=== PATIENT | male | born 1950 | race Caucasian/White ===

== ENCOUNTER 2021-10-13 17:17 | Emergency (ER) | payer BC ==
[~2021-10-13] VITALS: Ht 190.5 cm; Wt 108.9 kg
[2021-10-13 17:20] VITALS: BP 117/60
[2021-10-13 21:07] LABS: Urine WBC None Seen /hpf (0 - 3)
[2021-10-13 21:21] LABS: Urine Bacteria NONE SEEN /hpf (None Seen); Urine Blood Negative /uL (Negative); Urine Specific Gravity 1.003 (1.001-1.035)
== END 2021-10-13 21:56 | disposition left against medical advice (07) ==
LOC: ER 17:17
DX: I95.9 Hypotension, unspecified (principal); Z53.21 Procedure and treatment not carried out due to patient leaving prior to being seen by health care provider
CPT/HCPCS: 81001; 93005

== ENCOUNTER 2022-05-09 17:15 | Inpatient (IN) | payer MEDICARE, BC ==
[~2022-05-09] VITALS: Ht 190.5 cm; Wt 100.2 kg
[2022-05-09] MEDS ORDERED: LABETALOL HCL 5 MG/ML 4ML SYRINGE IV ONE ×2 (18:00→18:30)
[2022-05-09 18:14] LABS: Basophils # (auto) 0 10 ^3/uL (0-0.2); Basophils % (auto) 0.6 % (0.0-2.0); Eosinophils # (auto) 0.3 10 ^3/uL (0-0.8); Eosinophils % (auto) 3.4 % (0.0-7.0); Hematocrit 40.3 % (41.0-53.0); Hemoglobin 13.9 g/dL (13.5-17.5); Lymphocytes # (auto) 1.2 10 ^3/uL (0.4-5.4); Lymphocytes % (auto) 14.8 % (10.0-50.0); Mean Corpuscular Hemoglobin 29.8 pg (28.0-32.0); Mean Corpuscular Hgb Conc. 34.4 g/dL (32.0-36.0); Mean Corpuscular Volume 86.5 fL (80.0-100.0); Monocytes # (auto) 0.7 10 ^3/uL (0-1.3); Neutrophils # (auto) 5.6 10 ^3/uL (1.6-8.6); Neutrophils % (auto) 72.2 % (37.0-80.0); Red Blood Cells 4.66 10^6/uL (4.5-5.90); Red Cell Distribution Width 13.9 % (11.8-14.3); White Blood Cell 7.8 10^3/uL (4.4-10.8)
[2022-05-09 18:25] LABS: INR 1.07 (0.9-1.15); Partial Thromboplastin Time 29.1 sec (23.6-33.0)
[2022-05-09 18:26] LABS: Albumin 3.4 g/dL (3.4-5.0); BUN/Creatinine Ratio 16.3; Calcium 8.2 mg/dL (8.5-10.1); Magnesium 2.1 mg/dL (1.6-2.6); Potassium 4.1 mmol/L (3.5-5.1)
[2022-05-09 18:37] LABS: Bilirubin, Total 0.8 mg/dL (0.2-1.0); Total Protein 6.1 g/dL (6.4-8.2)
[2022-05-09] MEDS ORDERED: cloNIDine HCL 0.1 MG TAB PO ONE (20:30)
[2022-05-09] MEDS ORDERED: MORPHINE SULFATE INJ 2 MG/ml SYRG IV PRN ×2 (22:00→23:30)
[2022-05-09] MEDS: ATORVASTATIN 20 MG TAB PO SCH (22:00)
[2022-05-09] MEDS ORDERED: ONDANSETRON HCL 4 MG/2 ML VIAL IV PRN (22:00)
[2022-05-09] MEDS ORDERED: ACETAMINOPHEN 325 MG TAB PO PRN (22:00)
[2022-05-09] MEDS ORDERED: HYDROcodone-ACET 5/325MG TAB PO PRN (22:00)
[2022-05-09] MEDS ORDERED: DOCUSATE SOD 100 MG CAP PO PRN (22:00)
[2022-05-09] MEDS: SODIUM CHLOR 0.9% PF (SALINE LOCK) 10ML VIAL/SYR IV SCH (22:57)
[2022-05-09] MEDS ORDERED: NITROGLYCERIN 0.4 MG SL TAB SL PRN (23:30)
[2022-05-10] VITALS (8 sets, daily range): BP systolic 105–178; BP diastolic 60–99
[2022-05-10] MEDS: hydrALAZINE HCL 20 MG/ML VL IV PRN ×2 (01:26→06:17)
[2022-05-10] MEDS ORDERED: LORazepam 2MG/ML-1ML VIAL IV PRN (01:30)
[2022-05-10] MEDS ORDERED: SODIUM CHLORIDE 0.9% 1,000 ML IV SCH (01:45)
[2022-05-10] MEDS: SODIUM CHLOR 0.9% PF (SALINE LOCK) 10ML VIAL/SYR IV SCH ×3 (05:00→21:00)
[2022-05-10] MEDS ORDERED: PATIENTS OWN MEDICATION PO SCH ×2 (06:00→10:00)
[2022-05-10] MEDS ORDERED: FAMOTIDINE (10MG/ML) 2ML VL IV SCH (10:00)
[2022-05-10 10:25] LABS: Basophils # (auto) 0.1 10 ^3/uL (0-0.2); Basophils % (auto) 1.4 % (0.0-2.0); Eosinophils # (auto) 0.3 10 ^3/uL (0-0.8); Eosinophils % (auto) 3.2 % (0.0-7.0); Hematocrit 45.2 % (41.0-53.0); Hemoglobin 15.5 g/dL (13.5-17.5); Lymphocytes % (auto) 12.7 % (10.0-50.0); Mean Corpuscular Hemoglobin 30.1 pg (28.0-32.0); Mean Corpuscular Hgb Conc. 34.3 g/dL (32.0-36.0); Mean Corpuscular Volume 87.6 fL (80.0-100.0); Monocytes # (auto) 0.8 10 ^3/uL (0-1.3); Monocytes % (auto) 10.5 % (0.0-12.0); Neutrophils # (auto) 5.7 10 ^3/uL (1.6-8.6); Neutrophils % (auto) 72.2 % (37.0-80.0); Nucleated Red Blood Cells % 0.1 %; Red Blood Cells 5.16 10^6/uL (4.5-5.90); White Blood Cell 7.9 10^3/uL (4.4-10.8)
[2022-05-10] MEDS: ASPirin 81 mg TAB PO SCH (10:30)
[2022-05-10] MEDS: ENOXAPARIN SOD 40 MG/0.4 ML SYRINGE SC SCH (10:31)
[2022-05-10] MEDS: amLODIPine BESYLATE 5 MG TAB PO SCH (10:31)
[2022-05-10 10:43] LABS: Albumin 3.6 g/dL (3.4-5.0); Potassium 4.1 mmol/L (3.5-5.1)
[2022-05-10] MEDS ORDERED: LOSARTAN POTASSIUM 50 MG TAB PO ONE (10:45)
[2022-05-10 10:51] LABS: BUN/Creatinine Ratio 10.9; Bilirubin, Total 1.1 mg/dL (0.2-1.0)
[2022-05-10] MEDS ORDERED: SAFI100T PO (13:44)
[2022-05-10] MEDS ORDERED: APOMINJ SC (13:49)
[2022-05-10] MEDS: RYTARY PO SCH ×2 (14:00→21:01)
[2022-05-10] MEDS: ROPINIROLE 1 MG PO SCH ×2 (14:00→21:00)
[2022-05-10] MEDS ORDERED: XADAGO PO SCH (16:00)
[2022-05-10] MEDS: NOURIANZ PO SCH (21:00)
[2022-05-10] MEDS: ATORVASTATIN 20 MG TAB PO SCH (21:00)
[2022-05-10 21:04] LABS: Urine Bacteria FEW /hpf (None Seen); Urine Blood Negative /uL (Negative); Urine Specific Gravity 1.013 (1.001-1.035); Urine WBC 1 /hpf (0 - 3)
[2022-05-10] MEDS ORDERED: NOURIANZ PO SCH (22:00)
[2022-05-11 05:00] VITALS: BP 196/98
[2022-05-11] MEDS: hydrALAZINE HCL 20 MG/ML VL IV PRN (05:08)
[2022-05-11] MEDS: SODIUM CHLOR 0.9% PF (SALINE LOCK) 10ML VIAL/SYR IV SCH ×3 (05:12→21:13)
[2022-05-11] MEDS: ROPINIROLE 1 MG PO SCH ×3 (05:16→21:14)
[2022-05-11] MEDS: RYTARY PO SCH ×3 (05:17→21:14)
[2022-05-11 06:00] VITALS: BP 111/92
[2022-05-11 06:14] LABS: Basophils # (auto) 0.1 10 ^3/uL (0-0.2); Basophils % (auto) 0.6 % (0.0-2.0); Eosinophils # (auto) 0.2 10 ^3/uL (0-0.8); Eosinophils % (auto) 2.3 % (0.0-7.0); Hematocrit 46.3 % (41.0-53.0); Hemoglobin 16.3 g/dL (13.5-17.5); Lymphocytes # (auto) 1.1 10 ^3/uL (0.4-5.4); Lymphocytes % (auto) 13.2 % (10.0-50.0); Mean Corpuscular Hemoglobin 30.6 pg (28.0-32.0); Mean Corpuscular Hgb Conc. 35.2 g/dL (32.0-36.0); Mean Corpuscular Volume 86.9 fL (80.0-100.0); Monocytes # (auto) 0.9 10 ^3/uL (0-1.3); Monocytes % (auto) 10.6 % (0.0-12.0); Neutrophils # (auto) 6.1 10 ^3/uL (1.6-8.6); Neutrophils % (auto) 73.3 % (37.0-80.0); Nucleated Red Blood Cells % 0.1 %; Red Blood Cells 5.33 10^6/uL (4.5-5.90); Red Cell Distribution Width 13.8 % (11.8-14.3); White Blood Cell 8.3 10^3/uL (4.4-10.8)
[2022-05-11 06:21] LABS: Calcium 9.4 mg/dL (8.5-10.1); Potassium 3.9 mmol/L (3.5-5.1)
[2022-05-11 06:24] LABS: BUN/Creatinine Ratio 15.9
[2022-05-11 08:30] VITALS: BP 160/89
[2022-05-11] MEDS: APOKYN SC PRN ×2 (08:38→19:45)
[2022-05-11] MEDS: LOSARTAN POTASSIUM 50 MG TAB PO SCH (09:16)
[2022-05-11] MEDS: ASPirin 81 mg TAB PO SCH (09:16)
[2022-05-11] MEDS: PANTOPRAZOLE 40 MG TAB PO SCH (09:17)
[2022-05-11] MEDS: amLODIPine BESYLATE 5 MG TAB PO SCH (09:17)
[2022-05-11] MEDS: ENOXAPARIN SOD 40 MG/0.4 ML SYRINGE SC SCH (09:17)
[2022-05-11] MEDS ORDERED: PATIENTS OWN MEDICATION PO SCH (10:00)
[2022-05-11] MEDS ORDERED: XADAGO PO SCH (10:00)
[2022-05-11 12:40] VITALS: BP 106/57
[2022-05-11] MEDS ORDERED: clonazePAM 0.5 MG TAB PO PRN (13:45)
[2022-05-11] MEDS: LORazepam 0.5 MG TAB PO PRN ×2 (15:47→21:15)
[2022-05-11 16:45] VITALS: BP 108/69
[2022-05-11] MEDS: ATORVASTATIN 20 MG TAB PO SCH (21:14)
[2022-05-11] MEDS: NOURIANZ PO SCH (21:14)
[2022-05-11 22:00] VITALS: BP 130/64
[2022-05-12] MEDS: APOKYN SC PRN (01:17)
[2022-05-12] MEDS: LORazepam 0.5 MG TAB PO PRN (03:20)
[2022-05-12 05:00] VITALS: BP 135/32
[2022-05-12] MEDS: ROPINIROLE 1 MG PO SCH (05:01)
[2022-05-12] MEDS: SODIUM CHLOR 0.9% PF (SALINE LOCK) 10ML VIAL/SYR IV SCH (05:01)
[2022-05-12] MEDS: RYTARY PO SCH (05:01)
[2022-05-12] MEDS ORDERED: XADAGO PO SCH (08:00)
[2022-05-12] MEDS ORDERED: ADENOSINE 84 MG in GIVE UN-DILUTED 0 ML IV ONE (08:15)
[2022-05-12] MEDS ORDERED: ROPINIROLE 1 MG PO SCH (09:00)
[2022-05-12] MEDS ORDERED: RYTARY PO SCH (09:00)
[2022-05-12] MEDS: ASPirin 81 mg TAB PO SCH (10:05)
[2022-05-12] MEDS: PANTOPRAZOLE 40 MG TAB PO SCH (10:06)
[2022-05-12] MEDS: LOSARTAN POTASSIUM 50 MG TAB PO SCH (10:06)
[2022-05-12] MEDS: amLODIPine BESYLATE 5 MG TAB PO SCH (10:06)
[2022-05-12] MEDS: ENOXAPARIN SOD 40 MG/0.4 ML SYRINGE SC SCH (10:07)
[2022-05-12 11:24] VITALS: BP 113/54
== END 2022-05-12 13:30 | disposition home or self-care (01) | DRG 303 ==
LOC: EDBD 17:15 → ER 17:15 → TELE 23:22 → TELE-CENTR 05-10 02:21
PROVIDERS: ADMIT Nurse Practitioner Family; ATTEND Internal Medicine
DX: I25.10 Atherosclerotic heart disease of native coronary artery without angina pectoris (principal); E87.1 Hypo-osmolality and hyponatremia; I16.0 Hypertensive urgency; F41.9 Anxiety disorder, unspecified; G20 Parkinson's disease; G90.9 Disorder of the autonomic nervous system, unspecified; I10 Essential (primary) hypertension; Z20.822 Contact with and (suspected) exposure to COVID-19; R73.9 Hyperglycemia, unspecified; E66.3 Overweight; Z82.49 Family history of ischemic heart disease and other diseases of the circulatory system; Z68.27 Body mass index [BMI] 27.0-27.9, adult
CPT/HCPCS: 36415; 71045; 78452; 80048; 80053; 80061; 81001; 83036; 83735; 84484; 85025; 85610; 85730; 93005; 93017; 93306; 96361; 96374; 96376; 97110; 97116; 97163; 97530; 99291; G0378; J0153; J3490

== ENCOUNTER 2022-10-15 05:19 | Emergency (ER) | payer MEDICARE, BC ==
[~2022-10-15] VITALS: Ht 190.5 cm; Wt 113.5 kg
[~2022-10-15 05:19] MED LIST: APOMINJ SC; SAFI100T PO
[2022-10-15 06:26] LABS: Basophils # (auto) 0.1 10 ^3/uL (0-0.2); Basophils % (auto) 0.6 % (0.0-2.0); Eosinophils # (auto) 0.3 10 ^3/uL (0-0.8); Eosinophils % (auto) 2.9 % (0.0-7.0); Hematocrit 45.9 % (41.0-53.0); Hemoglobin 15.6 g/dL (13.5-17.5); Lymphocytes # (auto) 0.8 10 ^3/uL (0.4-5.4); Lymphocytes % (auto) 8.3 % (10.0-50.0); Mean Corpuscular Hemoglobin 30.2 pg (28.0-32.0); Mean Corpuscular Hgb Conc. 33.9 g/dL (32.0-36.0); Mean Corpuscular Volume 89.2 fL (80.0-100.0); Monocytes % (auto) 10.8 % (0.0-12.0); Neutrophils # (auto) 7.1 10 ^3/uL (1.6-8.6); Neutrophils % (auto) 77.4 % (37.0-80.0); Nucleated Red Blood Cells % 0.1 %; Red Blood Cells 5.15 10^6/uL (4.5-5.90); Red Cell Distribution Width 14.1 % (11.8-14.3); White Blood Cell 9.2 10^3/uL (4.4-10.8)
[2022-10-15 06:51] LABS: Acetaminophen < 2.0 ug/mL (10-30); Salicylate < 1.7 mg/dL (2.8-20.0)
[2022-10-15 07:40] LABS: Alcohol, Urine < 3.0 mg/dL (0-10); Amphetamine Screen, Urine NEGATIVE (NEGATIVE); Barbiturate Scree,Urine NEGATIVE (NEGATIVE); Benzodiazephine Screen, Urine NEGATIVE (NEGATIVE); Cannabinoid Screen, Urine NEGATIVE (NEGATIVE); Cocaine Screen, Urine NEGATIVE (NEGATIVE); Opiate Scree,Urine NEGATIVE (NEGATIVE); Phencyclidine Screen, Urine NEGATIVE (NEGATIVE)
[2022-10-15] MEDS ORDERED: SODIUM CHLORIDE 0.9% 1,000 ML IV ONE (09:45)
[2022-10-15 09:47] LABS: Alanine Aminotransferase 14 U/L (16-61); Albumin 3.9 g/dL (3.4-5.0); Alkaline Phosphatase 69 U/L (45-117); Anion Gap 8 (5-15); Aspartate Aminotransferase 25 U/L (15-37); BUN/Creatinine Ratio 17.3; Bilirubin, Total 0.8 mg/dL (0.2-1.0); Blood Urea Nitrogen 24 mg/dL (7-18); Carbon Dioxide 25 mmol/L (21-32); Chloride 106 mmol/L (98-107); GFR African American 64 mL/min; GFR Non-African American 53 mL/min; Glucose 149 mg/dL (74-106); Potassium 4.4 mmol/L (3.5-5.1); Sodium 139 mmol/L (136-145); Total Protein 6.7 g/dL (6.4-8.2)
[2022-10-15 09:48] LABS: Blood Alcohol < 3.0 mg/dL (0-5)
[2022-10-15] MEDS ORDERED: cloNIDine HCL 0.1 MG TAB PO ONE (19:00)
[2022-10-16 16:30] VITALS: BP 117/62
== END 2022-10-16 06:56 | disposition home or self-care (01) ==
LOC: EDBD 05:19 → ER 05:19
DX: R45.851 Suicidal ideations (principal); I10 Essential (primary) hypertension; R07.89 Other chest pain; E78.5 Hyperlipidemia, unspecified; Z79.899 Other long term (current) drug therapy
CPT/HCPCS: 36415; 71045; 80053; 80307; 80320; 80329; 84484; 85025; 93005; 99285; J7030

== ENCOUNTER 2023-11-06 09:38 | Inpatient (IN) | payer MEDICARE, OTHER ==
[~2023-11-06] VITALS: Ht 190.5 cm; Wt 77.2 kg
[2023-11-06] MEDS ORDERED: SODIUM CHLORIDE 0.9% 1,000 ML IV ONE ×2 (10:00)
[2023-11-06 10:38] LABS: Basophils # (auto) 0.1 10 ^3/uL (0-0.2); Basophils % (auto) 0.6 % (0.0-2.0); Eosinophils # (auto) 0.1 10 ^3/uL (0-0.8); Eosinophils % (auto) 0.8 % (0.0-7.0); Hematocrit 47.4 % (41.0-53.0); Hemoglobin 16.1 g/dL (13.5-17.5); Lymphocytes # (auto) 1.1 10 ^3/uL (0.4-5.4); Lymphocytes % (auto) 11.6 % (10.0-50.0); Mean Corpuscular Hemoglobin 30.1 pg (28.0-32.0); Mean Corpuscular Volume 88.4 fL (80.0-100.0); Monocytes # (auto) 0.7 10 ^3/uL (0-1.3); Monocytes % (auto) 7.4 % (0.0-12.0); Neutrophils # (auto) 7.9 10 ^3/uL (1.6-8.6); Neutrophils % (auto) 79.6 % (37.0-80.0); Nucleated Red Blood Cells % 0.4 %; Red Blood Cells 5.36 10^6/uL (4.5-5.90); Red Cell Distribution Width 13.8 % (11.8-14.3); White Blood Cell 9.9 10^3/uL (4.4-10.8)
[2023-11-06 10:51] LABS: INR 1.14 (0.9-1.15); Partial Thromboplastin Time 30.6 SEC (24.5-34.5); Prothrombin Time 11.9 sec (9.3-11.8)
[2023-11-06 11:00] VITALS: PULSE 92; RESP 18; O2SAT 98
[2023-11-06 11:09] LABS: Alanine Aminotransferase 12 U/L (7-40); Albumin 4.1 g/dL (3.2-4.8); Alkaline Phosphatase 88 U/L (46-116); Anion Gap 9 (5-15); Aspartate Aminotransferase 25 U/L (13-40); BUN/Creatinine Ratio 20.5 (10.0-20.0); Blood Urea Nitrogen 15 mg/dL (9-23); Calcium 9.8 mg/dL (8.5-10.1); Carbon Dioxide 27 mmol/L (20-30); Chloride 103 mmol/L (98-107); Creatine Kinase IFCC 72 U/L (46-171); Glucose 104 mg/dL (74-106); Potassium 4.6 mmol/L (3.5-5.1); Sodium 139 mmol/L (136-145)
[2023-11-06 11:10] LABS: Bilirubin, Total 0.8 mg/dL (0.2-1.0); Total Protein 6.5 g/dL (5.7-8.2)
[2023-11-06] MEDS ORDERED: ONDANSETRON HCL 4 MG/2 ML VIAL IV PRN (13:15)
[2023-11-06] MEDS ORDERED: ACETAMINOPHEN 325 MG TAB PO PRN (13:15)
[2023-11-06] MEDS ORDERED: HYDROcodone-ACET 5/325MG TAB PO PRN (13:15)
[2023-11-06] MEDS ORDERED: MORPHINE SULFATE INJ 2 MG/ml SYRG IV PRN ×2 (13:15)
[2023-11-06] MEDS ORDERED: NITROGLYCERIN 0.4 MG SL TAB SL PRN (13:15)
[2023-11-06] MEDS ORDERED: ASPirin 325 MG TAB PO ONE (13:30)
[2023-11-06] MEDS ORDERED: IOHEXOL 350 MG/ML 100ML IJ ONE ×2 (13:45→17:31)
[2023-11-06 15:10] LABS: Urine Bacteria NONE SEEN /hpf (None Seen); Urine Blood TRACE /uL (Negative); Urine Clarity HAZY (Clear); Urine Color Yellow (Yellow); Urine Hyaline Cast FEW /lpf (0 - 2); Urine Mucus FEW (None Seen); Urine Protein, UAD TRACE (Negative); Urine Specific Gravity 1.023 (1.001-1.035); Urine WBC 81 /hpf (0 - 3); Urine pH 5.5 (5.0-8.0)
[2023-11-06 15:14] LABS: Amphetamine Screen, Urine Neg (NEGATIVE); Barbiturate Scree,Urine Neg (NEGATIVE); Benzodiazephine Screen, Urine Neg (NEGATIVE); Cocaine Screen, Urine Neg (NEGATIVE)
[2023-11-06 15:15] LABS: Cannabinoid Screen, Urine Neg (NEGATIVE); Opiate Scree,Urine Neg (NEGATIVE); Phencyclidine Screen, Urine Neg (NEGATIVE)
[2023-11-06] MEDS ORDERED: ASPirin 81 mg TAB ONE (15:26)
[2023-11-06 19:43] VITALS: PULSE 93; RESP 19; O2SAT 92
[2023-11-06] MEDS ORDERED: ASPirin 325 MG TAB ONE (23:15)
[2023-11-06] MEDS ORDERED: LOSARTAN POTASSIUM 25 MG TAB ONE (23:15)
[2023-11-06] MEDS ORDERED: CLOPIDOGREL BISULFATE 75 MG TAB ONE (23:16)
[2023-11-06] MEDS ORDERED: ATORVASTATIN 20 MG TAB ONE (23:16)
[2023-11-06] MEDS: LOSARTAN POTASSIUM 25 MG TAB PO SCH (23:22)
[2023-11-06] MEDS: CLOPIDOGREL BISULFATE 75 MG TAB PO SCH (23:22)
[2023-11-06] MEDS: ATORVASTATIN 20 MG TAB PO SCH (23:22)
[2023-11-07] MEDS ORDERED: hydrALAZINE HCL 20 MG/ML VL ONE ×4 (02:35→23:28)
[2023-11-07] MEDS: hydrALAZINE HCL 20 MG/ML VL IV PRN ×4 (02:35→23:31)
[2023-11-07 04:34] LABS: Basophils # (auto) 0 10 ^3/uL (0-0.2); Basophils % (auto) 0.4 % (0.0-2.0); Eosinophils # (auto) 0.1 10 ^3/uL (0-0.8); Eosinophils % (auto) 0.5 % (0.0-7.0); Hematocrit 47.5 % (41.0-53.0); Hemoglobin 15.6 g/dL (13.5-17.5); Lymphocytes % (auto) 10.2 % (10.0-50.0); Mean Corpuscular Hemoglobin 29.6 pg (28.0-32.0); Mean Corpuscular Hgb Conc. 32.8 g/dL (32.0-36.0); Mean Corpuscular Volume 90.2 fL (80.0-100.0); Monocytes # (auto) 0.9 10 ^3/uL (0-1.3); Monocytes % (auto) 8.5 % (0.0-12.0); Neutrophils # (auto) 8.3 10 ^3/uL (1.6-8.6); Neutrophils % (auto) 80.4 % (37.0-80.0); Nucleated Red Blood Cells % 0.1 %; Red Blood Cells 5.27 10^6/uL (4.5-5.90); White Blood Cell 10.3 10^3/uL (4.4-10.8)
[2023-11-07 04:39] LABS: Albumin 3.8 g/dL (3.2-4.8); Alkaline Phosphatase 75 U/L (46-116); Anion Gap 9 (5-15); Aspartate Aminotransferase 21 U/L (13-40); BUN/Creatinine Ratio 14.7 (10.0-20.0); Bilirubin, Total 1.1 mg/dL (0.2-1.0); Blood Urea Nitrogen 11 mg/dL (9-23); Calcium 8.9 mg/dL (8.7-10.4); Carbon Dioxide 24 mmol/L (20-30); Chloride 104 mmol/L (98-107); Glucose 82 mg/dL (74-106); Potassium 3.8 mmol/L (3.5-5.1); Sodium 137 mmol/L (136-145); Total Protein 6.4 g/dL (5.7-8.2)
[2023-11-07 05:07] LABS: Alanine Aminotransferase 9 U/L (7-40)
[2023-11-07 08:00] VITALS: PULSE 81; RESP 9; O2SAT 95
[2023-11-07] MEDS ORDERED: LOSARTAN POTASSIUM 25 MG TAB ONE (10:41)
[2023-11-07] MEDS ORDERED: ENOXAPARIN SOD 40 MG/0.4 ML SYRINGE SC ONE (10:41)
[2023-11-07] MEDS ORDERED: CLOPIDOGREL BISULFATE 75 MG TAB ONE (10:41)
[2023-11-07] MEDS ORDERED: ASPirin 81 mg TAB ONE (10:42)
[2023-11-07] MEDS: LOSARTAN POTASSIUM 25 MG TAB PO SCH (10:45)
[2023-11-07] MEDS: CLOPIDOGREL BISULFATE 75 MG TAB PO SCH (10:45)
[2023-11-07] MEDS: ASPirin 81 mg TAB PO SCH (10:45)
[2023-11-07] MEDS: ENOXAPARIN SOD 40 MG/0.4 ML SYRINGE SC SCH (10:46)
[2023-11-07] MEDS ORDERED: ROPI1TAB4 PO (15:57)
[2023-11-07] MEDS ORDERED: ISTR40TA PO (16:00)
[2023-11-07] MEDS ORDERED: CARB1CAP3 PO (16:00)
[2023-11-07] MEDS ORDERED: PREG-108 PO (16:00)
[2023-11-07] MEDS ORDERED: ATEN100T PO (16:01)
[2023-11-07 19:30] VITALS: PULSE 96; RESP 14; O2SAT 97
[2023-11-07] MEDS ORDERED: cefTRIAXone SOD 1,000 MG VL ONE (21:08)
[2023-11-07] MEDS: ATORVASTATIN 20 MG TAB PO SCH (23:22)
[2023-11-08] MEDS: hydrALAZINE HCL 20 MG/ML VL IV PRN (06:15)
[2023-11-08 08:03] VITALS: PULSE 92; RESP 16; O2SAT 96
[2023-11-08] MEDS: ASPirin 81 mg TAB PO SCH (10:10)
[2023-11-08] MEDS: ENOXAPARIN SOD 40 MG/0.4 ML SYRINGE SC SCH (10:11)
[2023-11-08] MEDS: LOSARTAN POTASSIUM 25 MG TAB PO SCH (10:11)
[2023-11-08] MEDS: CLOPIDOGREL BISULFATE 75 MG TAB PO SCH (10:11)
[2023-11-08 19:20] VITALS: PULSE 92; RESP 14; O2SAT 94
[2023-11-08] MEDS: ATORVASTATIN 20 MG TAB PO SCH (23:00)
[2023-11-09 00:45] VITALS: BP 121/86; PULSE 92; RESP 18; TEMP 97.9; O2SAT 95; O2SAT 98
[2023-11-09 05:00] VITALS: BP 169/93; PULSE 85; RESP 17; TEMP 98; O2SAT 94
[2023-11-09 06:26] LABS: Basophils # (auto) 0 10 ^3/uL (0-0.2); Basophils % (auto) 0.3 % (0.0-2.0); Eosinophils # (auto) 0 10 ^3/uL (0-0.8); Eosinophils % (auto) 0.4 % (0.0-7.0); Hematocrit 45.2 % (41.0-53.0); Hemoglobin 15.1 g/dL (13.5-17.5); Lymphocytes # (auto) 1.3 10 ^3/uL (0.4-5.4); Lymphocytes % (auto) 9.7 % (10.0-50.0); Mean Corpuscular Hemoglobin 29.4 pg (28.0-32.0); Mean Corpuscular Hgb Conc. 33.3 g/dL (32.0-36.0); Mean Corpuscular Volume 88.2 fL (80.0-100.0); Monocytes # (auto) 1.4 10 ^3/uL (0-1.3); Monocytes % (auto) 10.4 % (0.0-12.0); Neutrophils # (auto) 10.3 10 ^3/uL (1.6-8.6); Neutrophils % (auto) 79.2 % (37.0-80.0); Red Blood Cells 5.13 10^6/uL (4.5-5.90); Red Cell Distribution Width 14.8 % (11.8-14.3)
[2023-11-09 06:38] LABS: Alanine Aminotransferase 14 U/L (7-40); Albumin 3.9 g/dL (3.2-4.8); Alkaline Phosphatase 69 U/L (46-116); Anion Gap 8 (5-15); Aspartate Aminotransferase 18 U/L (13-40); BUN/Creatinine Ratio 18.7 (10.0-20.0); Blood Urea Nitrogen 14 mg/dL (9-23); Calcium 9.6 mg/dL (8.5-10.1); Carbon Dioxide 27 mmol/L (20-30); Chloride 103 mmol/L (98-107); Glucose 140 mg/dL (74-106); Potassium 3.7 mmol/L (3.5-5.1); Sodium 138 mmol/L (136-145)
[2023-11-09 06:39] LABS: Bilirubin, Total 1.2 mg/dL (0.2-1.0); Total Protein 6.5 g/dL (5.7-8.2)
[2023-11-09] MEDS: hydrALAZINE HCL 20 MG/ML VL IV PRN (07:07)
[2023-11-09 09:00] VITALS: BP 139/78; PULSE 95; RESP 12; TEMP 97.9; O2SAT 96
[2023-11-09] MEDS: PREGABALIN 25 MG CAP PO SCH ×2 (09:49→21:10)
[2023-11-09] MEDS: ENOXAPARIN SOD 40 MG/0.4 ML SYRINGE SC SCH (09:49)
[2023-11-09] MEDS: ASPirin 81 mg TAB PO SCH (09:50)
[2023-11-09] MEDS: CLOPIDOGREL BISULFATE 75 MG TAB PO SCH (09:50)
[2023-11-09] MEDS: cefTRIAXone 1GM/50ML D5W 50 ML IV SCH (09:51)
[2023-11-09] MEDS ORDERED: LOSARTAN POTASSIUM 50 MG TAB PO SCH (10:00)
[2023-11-09] MEDS ORDERED: ATENOLOL 50 MG TAB PO SCH (10:00)
[2023-11-09 13:00] VITALS: BP 107/68; PULSE 75; RESP 12; TEMP 99.2; O2SAT 95
[2023-11-09] MEDS ORDERED: ROPINIROLE HYDROCHLORIDE 1 MG PO SCH (14:00)
[2023-11-09] MEDS: ROPINIROLE HYDROCHLORIDE 1 MG PO SCH ×2 (16:33→21:13)
[2023-11-09] MEDS: RYTARY PO SCH ×2 (16:33→21:12)
[2023-11-09 17:00] VITALS: BP 97/57; PULSE 60; RESP 14; TEMP 98.1; O2SAT 95
[2023-11-09 20:00] VITALS: BP 111/70; PULSE 66; RESP 18; TEMP 97.9; O2SAT 97
[2023-11-09] MEDS: ATORVASTATIN 20 MG TAB PO SCH (21:09)
[2023-11-10] MEDS: ROPINIROLE HYDROCHLORIDE 1 MG PO SCH (00:44)
[2023-11-10] MEDS: RYTARY PO SCH (00:45)
[2023-11-10 05:00] VITALS: BP 120/60; PULSE 57; RESP 18; TEMP 97.6; O2SAT 97
[2023-11-10 06:17] LABS: Basophils # (auto) 0.1 10 ^3/uL (0-0.2); Basophils % (auto) 0.6 % (0.0-2.0); Eosinophils # (auto) 0.1 10 ^3/uL (0-0.8); Eosinophils % (auto) 0.8 % (0.0-7.0); Hematocrit 39.2 % (41.0-53.0); Hemoglobin 12.9 g/dL (13.5-17.5); Lymphocytes # (auto) 1.2 10 ^3/uL (0.4-5.4); Lymphocytes % (auto) 10.5 % (10.0-50.0); Mean Corpuscular Hemoglobin 29.8 pg (28.0-32.0); Mean Corpuscular Volume 90.2 fL (80.0-100.0); Monocytes # (auto) 1.3 10 ^3/uL (0-1.3); Monocytes % (auto) 11.2 % (0.0-12.0); Neutrophils # (auto) 8.8 10 ^3/uL (1.6-8.6); Neutrophils % (auto) 76.9 % (37.0-80.0); Nucleated Red Blood Cells % 0.1 %; Red Blood Cells 4.34 10^6/uL (4.5-5.90); Red Cell Distribution Width 14.6 % (11.8-14.3); White Blood Cell 11.5 10^3/uL (4.4-10.8)
[2023-11-10 06:26] LABS: Anion Gap 7 (5-15); Carbon Dioxide 25 mmol/L (20-30); Chloride 105 mmol/L (98-107); Potassium 3.9 mmol/L (3.5-5.1); Sodium 137 mmol/L (136-145)
[2023-11-10 06:27] LABS: Calcium 9.2 mg/dL (8.5-10.1)
[2023-11-10 06:32] LABS: BUN/Creatinine Ratio 17.3 (10.0-20.0); Blood Urea Nitrogen 19 mg/dL (9-23); Glucose 109 mg/dL (74-106)
[2023-11-10 09:00] VITALS: BP 85/40; PULSE 58; RESP 12; TEMP 97.7; O2SAT 97
[2023-11-10] MEDS ORDERED: SODIUM CHLORIDE 0.9% 1,000 ML IV SCH (09:15)
[2023-11-10] MEDS: ASPirin 81 mg TAB PO SCH (09:48)
[2023-11-10] MEDS: PREGABALIN 25 MG CAP PO SCH (09:48)
[2023-11-10] MEDS: cefTRIAXone 1GM/50ML D5W 50 ML IV SCH (09:48)
[2023-11-10] MEDS: CLOPIDOGREL BISULFATE 75 MG TAB PO SCH (09:48)
[2023-11-10] MEDS: ENOXAPARIN SOD 40 MG/0.4 ML SYRINGE SC SCH (09:49)
[2023-11-10 13:00] VITALS: BP 126/56; PULSE 58; RESP 20; TEMP 97.4; O2SAT 93
[2023-11-10] MEDS ORDERED: CYANOCOBALAMIN 500 MCG TAB PO SCH (15:45)
[2023-11-10 16:11] LABS: Hematocrit 42.9 % (41.0-53.0); Hemoglobin 13.9 g/dL (13.5-17.5)
[2023-11-10 17:00] VITALS: BP 143/78; PULSE 68; RESP 16; TEMP 98.7; O2SAT 100
== END 2023-11-10 18:25 | DRG 871 ==
LOC: EDBD 09:38 → EDUNIT# 09:38 → ER 09:38 → TELE 13:11 → TELE-WESTW 11-08 23:41 → WEST WING 11-09 17:55
PROVIDERS: ADMIT Internal Medicine; ATTEND Internal Medicine
DX: A41.9 Sepsis, unspecified organism (principal); G92.8 Other toxic encephalopathy; I16.1 Hypertensive emergency; N39.0 Urinary tract infection, site not specified; I25.10 Atherosclerotic heart disease of native coronary artery without angina pectoris; G20.A1 Parkinson's disease without dyskinesia, without mention of fluctuations; E78.5 Hyperlipidemia, unspecified; F17.200 Nicotine dependence, unspecified, uncomplicated; I10 Essential (primary) hypertension; K59.00 Constipation, unspecified; I95.2 Hypotension due to drugs; Z86.73 Personal history of transient ischemic attack (TIA), and cerebral infarction without residual deficits; Z83.3 Family history of diabetes mellitus
CPT/HCPCS: 36415; 70450; 70496; 70551; 71045; 72192; 80048; 80053; 80307; 81001; 82140; 82306; 82550; 82607; 84443; 84484; 85014; 85018; 85025; 85610; 85730; 87086; 93005; 93306; 93886; 97163; 99291; G0378; J0696; J2405

== ENCOUNTER 2023-11-10 23:05 | Inpatient (IN) | payer MEDICARE, OTHER ==
[~2023-11-10] VITALS: Ht 190.5 cm; Wt 82.1 kg
[~2023-11-10 23:05] MED LIST changes: +ATEN100T PO; +CARB1CAP3 PO; +ISTR40TA PO; +PREG-108 PO; +ROPI1TAB4 PO
[2023-11-11 01:05] VITALS: O2SAT 97
[2023-11-11 01:50] LABS: Basophils # (auto) 0.1 10 ^3/uL (0-0.2); Basophils % (auto) 0.5 % (0.0-2.0); Eosinophils # (auto) 0.1 10 ^3/uL (0-0.8); Hematocrit 42.2 % (41.0-53.0); Hemoglobin 14.1 g/dL (13.5-17.5); Lymphocytes # (auto) 1.2 10 ^3/uL (0.4-5.4); Mean Corpuscular Hemoglobin 29.6 pg (28.0-32.0); Mean Corpuscular Hgb Conc. 33.3 g/dL (32.0-36.0); Monocytes # (auto) 1.1 10 ^3/uL (0-1.3); Monocytes % (auto) 9.1 % (0.0-12.0); Neutrophils # (auto) 9.6 10 ^3/uL (1.6-8.6); Neutrophils % (auto) 79.4 % (37.0-80.0); Nucleated Red Blood Cells % 0.1 %; Red Blood Cells 4.75 10^6/uL (4.5-5.90); Red Cell Distribution Width 14.3 % (11.8-14.3); White Blood Cell 12.1 10^3/uL (4.4-10.8)
[2023-11-11 01:50] LABS: Urine Bacteria NONE SEEN /hpf (None Seen); Urine Blood 3+ /uL (Negative); Urine Clarity CLOUDY (Clear); Urine Color Brown (Yellow); Urine Mucus FEW (None Seen); Urine Protein, UAD 2+ (Negative); Urine Specific Gravity 1.019 (1.001-1.035); Urine WBC 17 /hpf (0 - 3); Urine WBC Clumps PRESENT /hpf (None Seen); Urine pH 5.5 (5.0-8.0)
[2023-11-11 02:00] LABS: Amphetamine Screen, Urine Neg (NEGATIVE); Benzodiazephine Screen, Urine Neg (NEGATIVE)
[2023-11-11 02:00] LABS: INR 1.11 (0.9-1.15); Partial Thromboplastin Time 25.8 SEC (24.5-34.5); Prothrombin Time 11.6 sec (9.3-11.8)
[2023-11-11 02:01] LABS: Barbiturate Scree,Urine Neg (NEGATIVE); Cannabinoid Screen, Urine Neg (NEGATIVE); Cocaine Screen, Urine Neg (NEGATIVE); Opiate Scree,Urine Neg (NEGATIVE); Phencyclidine Screen, Urine Neg (NEGATIVE)
[2023-11-11 02:04] LABS: Albumin 3.6 g/dL (3.2-4.8); Alkaline Phosphatase 63 U/L (46-116); Anion Gap 6 (5-15); Aspartate Aminotransferase 16 U/L (13-40); BUN/Creatinine Ratio 19.5 (10.0-20.0); Blood Alcohol < 3.0 mg/dL (<10); Blood Urea Nitrogen 15 mg/dL (9-23); Calcium 8.6 mg/dL (8.7-10.4); Carbon Dioxide 25 mmol/L (20-30); Chloride 106 mmol/L (98-107); Glucose 94 mg/dL (74-106); Lipase 35 U/L (12-53); Magnesium 1.8 mg/dL (1.6-2.6); Potassium 3.8 mmol/L (3.5-5.1); Sodium 137 mmol/L (136-145)
[2023-11-11 02:05] LABS: Alanine Aminotransferase < 9 U/L (7-40); Total Protein 5.9 g/dL (5.7-8.2)
[2023-11-11] MEDS ORDERED: LACTATED RINGER'S 2,000 ML IV ONE (03:15)
[2023-11-11] MEDS ORDERED: PIPERACILLIN-TAZOB 3.375GM 100 ML IV ONE (03:15)
[2023-11-11] MEDS ORDERED: ONDANSETRON HCL 4 MG/2 ML VIAL IV PRN ×2 (04:15→14:00)
[2023-11-11] MEDS ORDERED: ACETAMINOPHEN 325 MG TAB PO PRN (04:15)
[2023-11-11] MEDS ORDERED: cefTRIAXone 1GM/50ML D5W 50 ML IV SCH (09:00)
[2023-11-11 09:12] VITALS: PULSE 61; RESP 13; O2SAT 98
[2023-11-11] MEDS: RYTARY PO SCH ×3 (09:46→22:00)
[2023-11-11] MEDS: LEVOTHYROXINE SODIUM 25 MCG TAB PO SCH (09:46)
[2023-11-11] MEDS: XADAGO PO SCH (10:00)
[2023-11-11] MEDS ORDERED: AZITHROMYCIN 500MG/ 250ML 250 ML IV SCH (10:00)
[2023-11-11] MEDS ORDERED: ENOXAPARIN SOD 40 MG/0.4 ML SYRINGE SC SCH (10:00)
[2023-11-11] MEDS: LOSARTAN POTASSIUM 50 MG TAB PO SCH (10:16)
[2023-11-11] MEDS: MORPHINE SULFATE INJ 2 MG/ml SYRG IV PRN ×2 (13:00→19:43)
[2023-11-11] MEDS: hydrALAZINE HCL 20 MG/ML VL IV PRN ×2 (13:32→22:18)
[2023-11-11] MEDS ORDERED: MORPHINE SULFATE INJ 2 MG/ml SYRG IV PRN (14:00)
[2023-11-11] MEDS ORDERED: MORPHINE SULFATE INJ 2 MG/ml SYRG ONE (14:01)
[2023-11-11] MEDS: MEROPENEM 1GM IVPB 100 ML IV SCH ×2 (14:20→22:07)
[2023-11-11] MEDS ORDERED: TOLTERODINE TARTRATE 1 MG TAB PO ONE (18:15)
[2023-11-11 19:30] VITALS: PULSE 78; RESP 15; O2SAT 100
[2023-11-11] MEDS: ATORVASTATIN 20 MG TAB PO SCH (22:07)
[2023-11-12] VITALS (7 sets, daily range): BP systolic 132–167; BP diastolic 63–85; PULSE 86–94; RESP 16–19; TEMP 98.3–99.2; O2SAT 94–99
[2023-11-12] MEDS: MORPHINE SULFATE INJ 2 MG/ml SYRG IV PRN (04:44)
[2023-11-12] MEDS: RYTARY PO SCH ×3 (06:00→22:00)
[2023-11-12] MEDS: hydrALAZINE HCL 20 MG/ML VL IV PRN ×2 (06:32→18:31)
[2023-11-12] MEDS: MEROPENEM 1GM IVPB 100 ML IV SCH (06:32)
[2023-11-12] MEDS: LEVOTHYROXINE SODIUM 25 MCG TAB PO SCH (06:32)
[2023-11-12 06:54] LABS: Chloride 102 mmol/L (98-107); Potassium 3.7 mmol/L (3.5-5.1); Sodium 138 mmol/L (136-145)
[2023-11-12 06:55] LABS: Anion Gap 11 (5-15); Carbon Dioxide 25 mmol/L (20-30)
[2023-11-12 07:00] LABS: BUN/Creatinine Ratio 19.7 (10.0-20.0); Blood Urea Nitrogen 12 mg/dL (9-23); Glucose 92 mg/dL (74-106)
[2023-11-12 07:01] LABS: Basophils # (auto) 0 10 ^3/uL (0-0.2); Basophils % (auto) 0.3 % (0.0-2.0); Eosinophils # (auto) 0 10 ^3/uL (0-0.8); Eosinophils % (auto) 0.2 % (0.0-7.0); Hematocrit 41.4 % (41.0-53.0); Hemoglobin 13.9 g/dL (13.5-17.5); Lymphocytes # (auto) 0.6 10 ^3/uL (0.4-5.4); Lymphocytes % (auto) 4.8 % (10.0-50.0); Mean Corpuscular Hemoglobin 29.6 pg (28.0-32.0); Mean Corpuscular Hgb Conc. 33.7 g/dL (32.0-36.0); Mean Corpuscular Volume 87.9 fL (80.0-100.0); Monocytes # (auto) 1.3 10 ^3/uL (0-1.3); Monocytes % (auto) 9.4 % (0.0-12.0); Neutrophils # (auto) 11.4 10 ^3/uL (1.6-8.6); Neutrophils % (auto) 85.3 % (37.0-80.0); Nucleated Red Blood Cells % 0.1 %; Red Blood Cells 4.71 10^6/uL (4.5-5.90); Red Cell Distribution Width 14.1 % (11.8-14.3); White Blood Cell 13.4 10^3/uL (4.4-10.8)
[2023-11-12 08:53] LABS: Hepatitis B Surface Antigen Negative (Negative)
[2023-11-12 09:14] LABS: Hepatitis C Antibody Negative (Negative)
[2023-11-12] MEDS: XADAGO PO SCH (10:00)
[2023-11-12] MEDS: TOLTERODINE TARTRATE 1 MG TAB PO SCH (16:25)
[2023-11-12] MEDS: LOSARTAN POTASSIUM 50 MG TAB PO SCH (16:27)
[2023-11-12] MEDS ORDERED: hydrALAZINE HCL 20 MG/ML VL ONE (18:07)
[2023-11-12] MEDS: DOXYCYCLINE 100 MG TAB/CAP PO SCH (22:03)
[2023-11-12] MEDS: ATORVASTATIN 20 MG TAB PO SCH (22:04)
[2023-11-13] VITALS (8 sets, daily range): BP systolic 108–150; BP diastolic 59–84; PULSE 70–83; RESP 16–18; TEMP 37.1; O2SAT 93–95
[2023-11-13] MEDS: RYTARY PO SCH ×3 (06:00→22:00)
[2023-11-13 06:28] LABS: Basophils # (auto) 0 10 ^3/uL (0-0.2); Basophils % (auto) 0.4 % (0.0-2.0); Eosinophils # (auto) 0.1 10 ^3/uL (0-0.8); Eosinophils % (auto) 0.9 % (0.0-7.0); Hematocrit 38.9 % (41.0-53.0); Hemoglobin 13.2 g/dL (13.5-17.5); Lymphocytes # (auto) 1.1 10 ^3/uL (0.4-5.4); Lymphocytes % (auto) 9.9 % (10.0-50.0); Mean Corpuscular Hemoglobin 29.9 pg (28.0-32.0); Mean Corpuscular Hgb Conc. 33.9 g/dL (32.0-36.0); Mean Corpuscular Volume 88.2 fL (80.0-100.0); Monocytes # (auto) 1.4 10 ^3/uL (0-1.3); Monocytes % (auto) 12.8 % (0.0-12.0); Neutrophils # (auto) 8.3 10 ^3/uL (1.6-8.6); Nucleated Red Blood Cells % 0.3 %; Red Blood Cells 4.41 10^6/uL (4.5-5.90); Red Cell Distribution Width 14.3 % (11.8-14.3); White Blood Cell 10.9 10^3/uL (4.4-10.8)
[2023-11-13] MEDS: LEVOTHYROXINE SODIUM 25 MCG TAB PO SCH (06:37)
[2023-11-13] MEDS: TOLTERODINE TARTRATE 1 MG TAB PO SCH (11:32)
[2023-11-13] MEDS: LOSARTAN POTASSIUM 50 MG TAB PO SCH (11:32)
[2023-11-13] MEDS: DOXYCYCLINE 100 MG TAB/CAP PO SCH ×2 (11:33→23:40)
[2023-11-13] MEDS: MORPHINE SULFATE INJ 2 MG/ml SYRG IV PRN (11:43)
[2023-11-13] MEDS: XADAGO PO SCH (11:48)
[2023-11-13] MEDS ORDERED: LEV25T PO (11:59)
[2023-11-13] MEDS ORDERED: LOSA50TA46 PO (11:59)
[2023-11-13] MEDS ORDERED: DOX100T PO (11:59)
[2023-11-13] MEDS: ATORVASTATIN 20 MG TAB PO SCH (23:40)
[2023-11-14] MEDS: RYTARY PO SCH ×3 (06:00→13:28)
[2023-11-14] MEDS: LEVOTHYROXINE SODIUM 25 MCG TAB PO SCH ×2 (06:29→09:23)
[2023-11-14] MEDS: LOSARTAN POTASSIUM 50 MG TAB PO SCH (09:23)
[2023-11-14] MEDS: DOXYCYCLINE 100 MG TAB/CAP PO SCH (09:23)
[2023-11-14] MEDS: TOLTERODINE TARTRATE 1 MG TAB PO SCH (09:24)
[2023-11-14] MEDS: XADAGO PO SCH (09:24)
[2023-11-14 12:08] LABS: Basophils # (auto) 0.1 10 ^3/uL (0-0.2); Basophils % (auto) 0.7 % (0.0-2.0); Eosinophils # (auto) 0.1 10 ^3/uL (0-0.8); Hematocrit 34.9 % (41.0-53.0); Hemoglobin 11.8 g/dL (13.5-17.5); Lymphocytes % (auto) 10.4 % (10.0-50.0); Mean Corpuscular Hemoglobin 29.7 pg (28.0-32.0); Mean Corpuscular Hgb Conc. 33.9 g/dL (32.0-36.0); Mean Corpuscular Volume 87.5 fL (80.0-100.0); Monocytes # (auto) 1.1 10 ^3/uL (0-1.3); Monocytes % (auto) 11.7 % (0.0-12.0); Neutrophils # (auto) 7.4 10 ^3/uL (1.6-8.6); Neutrophils % (auto) 76.2 % (37.0-80.0); Red Blood Cells 3.99 10^6/uL (4.5-5.90); Red Cell Distribution Width 14.2 % (11.8-14.3); White Blood Cell 9.8 10^3/uL (4.4-10.8)
== END 2023-11-14 14:56 | disposition hospice, home (50) | DRG 91 ==
LOC: ER 23:05 → EDBD 23:05 → OVERFLOW 11-11 04:13 → WEST WING 11-12 01:15
PROVIDERS: ADMIT Internal Medicine; ATTEND Internal Medicine
DX: G92.8 Other toxic encephalopathy (principal); J69.0 Pneumonitis due to inhalation of food and vomit; I16.1 Hypertensive emergency; N39.0 Urinary tract infection, site not specified; E86.0 Dehydration; G20.A1 Parkinson's disease without dyskinesia, without mention of fluctuations; I10 Essential (primary) hypertension; E78.5 Hyperlipidemia, unspecified; G90.8 Other disorders of autonomic nervous system; E03.9 Hypothyroidism, unspecified; I25.10 Atherosclerotic heart disease of native coronary artery without angina pectoris; N40.0 Benign prostatic hyperplasia without lower urinary tract symptoms; Z82.49 Family history of ischemic heart disease and other diseases of the circulatory system
CPT/HCPCS: 36415; 70450; 71045; 71250; 76775; 80048; 80053; 80307; 80320; 81001; 82010; 82140; 83605; 83690; 83735; 83930; 84443; 84484; 85025; 85610; 85730; 86803; 86850; 86900; 86901; 87040; 87077; 87081; 87086; 87186; 87340; 93005; 96365; 96367; 96375; 99291; G0378; J2185; J2543